=== PATIENT | male | born 2000 | race Caucasian/White ===

== ENCOUNTER 2021-01-05 16:16 | Emergency (ER) | payer MEDICAID ==
[2021-01-05] MEDS ORDERED: TETRACAINE 0.5% STERI-UNIT SOL OP ONE (16:33)
[2021-01-05] MEDS ORDERED: Eye-Stream Solution ONE (16:34)
[2021-01-05] MEDS ORDERED: Fluor-I-Strip/Ful-Flo OP ONE (16:34)
[2021-01-05] MEDS ORDERED: Erythromycin 1 GM ONE (16:49)
[2021-01-05] MEDS: Erythromycin 3.5 GM OPHTH. OP ONE (16:55)
[2021-01-05] MEDS: Eye-Stream Solution OP ONE (16:57)
[2021-01-05] MEDS: Fluor-I-Strip/Ful-Flo OP ONE (16:57)
[2021-01-05] MEDS: TETRACAINE 0.5% STERI-UNIT SOL OP STA (16:57)
[2021-01-05] MEDS: Erythromycin 1 GM OP STA (16:57)
--- NOTE | 2021-01-05 16:57 | ERPHSYRPT ---
- History of Present Illness Time Seen by Provider: 01/05/21 16:30 Source: patient Exam Limitations: no limitations Patient Subjective Stated Complaint: pt here for feeling like something is in right eye , Triage Nursing Assessment: pt was grinding on metal, he states eye now feels like something is in it, no tearing,no reddness Physician History: Patient is a 20-year-old male presents to our ED with a foreign body sensation in his left eye. Patient was grinding on metal without goggles when he felt a foreign body fly into his eye. Patient checked himself in the mirror and observed a foreign body at the left lower quadrant limbus left eye. No other trauma. No fever. No headache. Patient states his vision is mildly blurry. No nausea or vomiting. Tetanus up-to-date. Patient is otherwise healthy. He voices no other complaints or concerns at this time. Timing/Duration: today Severity: mild Modifying Factors: Improves With: nothing Associated Symptoms: denies symptoms Allergies/Adverse Reactions: No Known Drug Allergies Allergy (Unverified 01/05/21 16:28) Hx Tetanus, Diphtheria Vaccination/Date Given: No Hx Influenza Vaccination/Date Given: No Hx Pneumococcal Vaccination/Date Given: No Immunizations Up to Date: Yes Travel Risk - International Travel Have you traveled outside of the country in past 3 weeks: No - Coronavirus Screening Close contact with a COVID-19 positive Pt in past 14-21 Days: No - Vaccine Status Have you recieved a Covid-19 vaccination: No - Review of Systems Constitutional: No Symptoms, No Fever, No Chills Eyes: No Symptoms Ears, Nose, & Throat: No Symptoms Respiratory: No Symptoms, No Cough, No Dyspnea Cardiac: No Symptoms, No Chest Pain, No Edema, No Syncope Abdominal/Gastrointestinal: No Symptoms, No Abdominal Pain, No Nausea, No Vomiting, No Diarrhea Genitourinary Symptoms: No Symptoms, No Dysuria Musculoskeletal: No Symptoms, No Back Pain, No Neck Pain Skin: No Symptoms, No Rash Neurological: No Symptoms, No Dizziness, No Focal Weakness, No Sensory Changes Psychological: No Symptoms Endocrine: No Symptoms Hematologic/Lymphatic: No Symptoms Immunological/Allergic: No Symptoms All Other Systems: Reviewed and Negative - Past Medical History Pertinent Past Medical History: No - Past Surgical History Past Surgical History: No - Social History Smoking Status: Current some day smoker Exposure to second hand smoke: No Drug Use: none Patient Lives Alone: No - Nursing Vital Signs Nursing Vital Signs: Initial Vital Signs Temperature 98.4 F 01/05/21 16:24 Pulse Rate 72 01/05/21 16:24 Respiratory Rate 16 01/05/21 16:24 Blood Pressure 157/81 01/05/21 16:24 O2 Sat by Pulse Oximetry 97 01/05/21 16:24 Pain Scale Pain Intensity 1 - Physical Exam General Appearance: no apparent distress, alert Eye Exam: PERRL/EOMI, eyes nml inspection (Eye pressure left is 18. Eye pressure right is 16.), other (Punctate foreign body at the left lower quadrant of the left. Foreign body located at the limbus), No scleral icterus, No pale conjunctivae, No photophobia Ears, Nose, Throat Exam: normal ENT inspection, TMs normal, pharynx normal, moist mucous membranes Neck Exam: normal inspection, non-tender, supple, full range of motion Respiratory Exam: normal breath sounds, lungs clear, No respiratory distress Cardiovascular Exam: regular rate/rhythm, normal heart sounds, normal peripheral pulses Gastrointestinal/Abdomen Exam: soft, normal bowel sounds, No tenderness, No mass Back Exam: normal inspection, normal range of motion, No CVA tenderness, No vertebral tenderness Extremity Exam: normal inspection, normal range of motion, pelvis stable Neurologic Exam: alert, oriented x 3, cooperative, normal mood/affect, nml cerebellar function, nml station & gait, sensation nml, No motor deficits Skin Exam: normal color, warm, dry, No rash Lymphatic Exam: No adenopathy SpO2 Interpretation: normal SpO2: 97 O2 Delivery: Room Air - Course Nursing assessment & vital signs reviewed: Yes Ordered Tests: Medication Summary Generic Name Dose Route Start Last Admin Trade Name Freq PRN Reason Stop Dose Admin Erythromycin 1 gm 01/05/21 16:48 Erythromycin 1 Gm OP 01/05/21 16:49 STAT STA Erythromycin 3.5 gm 01/05/21 16:50 Erythromycin 3.5 Gm Ophth. OP 01/05/21 16:51 STAT ONE Discontinued Medications Generic Name Dose Route Start Last Admin Trade Name Freq PRN Reason Stop Dose Admin Eye Irrigation Solution Confirm 01/05/21 16:34 Eye-Stream Solution Administered 01/05/21 16:35 Dose 30 ml .ROUTE .STK-MED ONE Fluorescein Sodium Confirm 01/05/21 16:34 Ollnr-N-Agsnc/Ful-Larry Administered 01/05/21 16:35 Dose 1 mg OP .STK-MED ONE Tetracaine HCl Confirm 01/05/21 16:33 Tetracaine 0.5% Steri-Unit Aaliyah Administered 01/05/21 16:34 Dose 4 ml OP .STK-MED ONE - Progress Progress: improved Progress Note: Exam performed with fluorescein, tetracaine and a Carballo lamp. Foreign body observed at the limbus of the left lower quadrant left eye. Eye pressures are within normal limits. 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 It appears the foreign body may have washed away. We will send patient to optometry/ophthalmology for a reassessment. Erythromycin ophthalmic ointment applied. An appointment was scheduled for tomorrow at 8:30 AM. Patient agrees to follow-up as scheduled. He voices no other complaints or concerns at this time. A prescription for erythromycin ophthalmic was forwarded to patient's pharmacy. Patient voices no other complaints or concerns at this time. 01/05/21 16:58 Counseled pt/family regarding: diagnosis, need for follow-up - Departure Departure Disposition: Home Clinical Impression: Foreign body, eye Condition: Stable Critical Care Time: No Referrals: JULIA BECERRA, SANDY [NON-STAFF PHY W/O PRIVILEGES] - Additional Instructions: Discharge/Care Plan AUGUSTO LANG was seen on 01/05/21 in the Emergency Room. The patient was c ounseled regarding Diagnosis,Lab results, Imaging studies, need for follow up and when to return to the Emergency Room. Prescriptions given: Discharge Note I have spoken with the patient and/or caregivers. I have explained the patient's condition, diagnosis and treatment plan based on the information available to me at this time. I have answered the patient's and/or caregiver's questions and addressed any concerns. The patient and/or caregivers have as good understanding of the patient's diagnosis, condition and treatment plan as can be expected at this point. The vital signs have been stable. The patient's condition is stable and appropriate for discharge from the emergency department. The patient will pursue further outpatient evaluation with the primary care physician or other designated or consulting physician as outlined in the discharge instructions. The patient and/or caregivers are agreeable to this plan of care and follow-up instructions have been explained in detail. The patient and/or caregivers have received these instruction. The patient/and or caregivers are aware that any significant change in condition or worsening of symptoms should prompt an immediate return to this or the closest emergency department or call 911. Prescriptions: Erythromycin Base 3.5 gm [Erythromycin 3.5 GM OPHTH.] 3.5 gm OP QID #1 tube
[2021-01-05 17:10] VITALS: BP 135/80; PULSE 68; O2SAT 98
== END 2021-01-05 17:11 | disposition home or self-care (01) ==
LOC: ED 16:16
DX: T15.82XA Foreign body in other and multiple parts of external eye, left eye, initial encounter (principal); H53.8 Other visual disturbances
CPT/HCPCS: 99283; A9270-GY